=== PATIENT | male | born 1995 | race Asian ===

== ENCOUNTER 2022-07-07 18:20 | Emergency (ER) | payer OTHER ==
[2022-07-07 18:34] VITALS: TEMP 98.1; BMI 28.8
[2022-07-07] MEDS ORDERED: predniSONE 20 MG TABLET (UD) PO ONE (19:56)
[2022-07-07] MEDS ORDERED: ALBUTEROL SO4 2.5/IPRATROPIUM 0.5 INH SOL 3 ML VIAL.NEB. NEB ONE (20:08)
[2022-07-07] MEDS ORDERED: predniSONE 20 MG TABLET (UD) ONE (20:08)
[2022-07-07] MEDS: ALBUTEROL SO4 2.5/IPRATROPIUM 0.5 INH SOL 3 ML VIAL.NEB. NEB SCH (20:15)
[2022-07-07 20:17] LABS: BASO % 1.3 % (0-2.0); EOS % 9.1 % (0-4.5); HEMATOCRIT 48.6 % (35.4-49); LYMPH % 39.6 % (8-40); MCH 28.6 pg (25.7-33.7); MCHC 32.9 g/dl (32.0-35.9); MEAN CELL VOLUME 87.1 fl (80-96); MEAN PLT VOLUME 8.1 fl (7.5-11.1); MONO % 6.7 % (3.8-10.2); NEUT % 43.3 % (42.8-82.8); PLATELET COUNT 378 10^3/uL (134-434); RBC 5.58 M/mm3 (4.00-5.60); RDW 13.5 % (11.9-15.9); WHITE BLOOD COUNT 7.5 K/mm3 (4.0-10.0)
[2022-07-07 20:25] LABS: INR 0.98 (0.83-1.09); PROTHROMBIN TIME (PATIENT) 11.3 SEC (9.7-13.0)
[2022-07-07 20:28] LABS: ACTIVATED PTT 34.1 SECONDS (25.2-36.5)
[2022-07-07 21:20] LABS: CALCIUM 9.1 mg/dL (8.5-10.1)
[2022-07-07 21:21] LABS: ALBUMIN 4.1 g/dl (3.4-5.0); BLOOD UREA NITROGEN 11.2 mg/dL (7-18)
[2022-07-07 21:24] LABS: CREATININE 1.1 mg/dL (0.55-1.3)
[2022-07-07 21:25] LABS: BILIRUBIN,TOTAL 0.3 mg/dL (0.2-1); TOT PROT 7.6 g/dl (6.4-8.2)
[2022-07-08 01:24] VITALS: BP 133/58; PULSE 90; RESP 20
== END 2022-07-08 01:24 | disposition home or self-care (01) ==
LOC: JER 18:20 → JERFT 18:20 → JER 07-08 01:24
PROC: 3E0F7GC Introduction of Other Therapeutic Substance into Respiratory Tract, Via Natural or Artificial Opening (ICD-10-PCS; principal; 2022-07-07)
DX: J68.3 Other acute and subacute respiratory conditions due to chemicals, gases, fumes and vapors (principal)
CPT/HCPCS: 0241U-QW; 36415; 71275-TC; 80053; 85025; 85379; 85610; 85730; 99284-25; Q9967